=== PATIENT | female | born 2000 | race Caucasian/White ===

== ENCOUNTER 2021-03-20 03:24 | Emergency (ER) | payer MEDICAID, SELFPAY ==
[2021-03-20 03:27] VITALS: BP 111/71; PULSE 84; RESP 14; TEMP 37.2; O2SAT 98; BMI 23.8
[2021-03-20 04:02] LABS: Urine Pregnancy, HCG Qual. Negative (Negative)
[2021-03-20 04:12] LABS: Appearance,Urine CLEAR (Clear); Bilirubin,Urine Negative (Negative); Blood, Urine 1+ (Negative); Color,Urine YELLOW (Yellow); Glucose,Urine (UA) Negative (Negative); Ketones,Urine Negative (Negative); Leukocyte Esterase,Urine Negative (Negative); Microscopic, Urine URINE MICROSCOPIC (MICROSCOPIC); Nitrate,Urine Negative (Negative); PH,Urine 5.5 (5.0-8.5); Protein,Urine Negative (Negative); Specific Gravity, Urine 1.025 (1.005-1.030); Urobilinogen,Urine 0.2 EU/dl (0.2)
[2021-03-20 04:12] LABS: Coronavirus 19, PCR Not Detected (NotDetected); Influenza A, PCR Not Detected (NotDetected); Influenza B, PCR Not Detected (NotDetected)
[2021-03-20 04:13] VITALS: BP 97/67; PULSE 65; O2SAT 100
[2021-03-20 04:14] LABS: Basophils # 0.2 K/mm3 (0-0.2); Eosinophils # 0.1 K/mm3 (0.0-0.4); Hematocrit 47.3 % (37.0-47.0); Hemoglobin 15.3 g/dL (12.2-16.2); Lymphocytes # 3.2 K/mm3 (0.7-4.5); Lymphocytes % 35.4 % (10-50); Mean Corpuscular HGB Conc 32.2 g/dL (31.8-35.4); Mean Corpuscular Hemoglobin 29.6 pg (27.0-31.2); Mean Corpuscular Volume 91.9 fl (81-99); Mean Platelet Volume 7.1 fl (7.4-10.4); Monocytes # 0.5 K/mm3 (0.1-1.0); Monocytes % 5.3 % (1.7-9.3); Neutrophils # 5.1 K/mm3 (1.8-7.8); Neutrophils % 56.3 % (37.0-80.0); Platelet Count 418 K/mm3 (142-424); Red Blood Count 5.15 M/mm3 (4.20-5.40); White Blood Count 9.1 K/mm3 (4.5-13.0)
[2021-03-20 04:23] LABS: Alanine Aminotransferase 13 U/L (12-78); Albumin Level 4.7 g/dl (3.5-5.0); Albumin/Globulin Ratio 1.7 (1.1-1.8); Alkaline Phosphatase 50 U/L (38-126); Anion Gap 11.8 mEq/L (5-15); Aspartate Amino Transferase 24 U/L (14-36); Bilirubin,Total 0.3 mg/dl (0.2-1.3); Blood Urea Nitrogen 9 mg/dl (7-17); Calcium 9.4 mg/dl (8.4-10.2); Carbon Dioxide 28 mmol/L (22.0-30.0); Chloride 103 mmol/L (98-107); Creatinine Clearance Estimated 119 mL/min (50-200); Estimated Glomerular Filt Rate 107 ml/min (>60); GFR (African American) 129 ML/MIN (>60); Globulin 2.7 g/dL (1.3-3.2); Glucose 95 mg/dl (74-100); Potassium 3.8 mmoL/L (3.5-5.1); Sodium 139 mmol/L (136-145); Total Protein,Serum 7.4 g/dl (6.3-8.2)
[2021-03-20 04:27] LABS: Squamous Epithelial Cell,Urine Occasional #/hpf (0-5); WBC,Urine Occasional #/hpf (0-3)
[2021-03-20 04:28] LABS: C-Reactive Protein 0.8 mg/L (0-4)
[2021-03-20 04:30] VITALS: BP 95/61; PULSE 65; O2SAT 100
--- NOTE | 2021-03-20 04:36 | HMH.EDNVD ---
ED Disposition Clinical Impression: Gastroenteritis Disposition: Home, Self-Care Condition on Discharge: Good Instructions: DI for Nausea -- Adult Additional Instructions: fluids and call pcp for follow up Prescriptions: ondansetron HCL [Zofran 4mg Tab] 4 mg PO TID #21 tab Prescription Printed Referrals: Provider,Referral, [Primary Care Provider] - - Critical Care Critical Care Time: No Attestation: On 03/20/21, the high probability of a clinically significant, sudden or life threatening deterioration of the following system(s) required my full and direct attention, intervention and personal management. The time I documented below is in addition to time spent performing reported procedures but includes the following listed in this critical care notation. Medical Decision Making - Medical Records Medical records reviewed: Yes: I reviewed the patient's medical records. - Johnnie Inquiry Pt receiving controlled substance: No Vital Signs: 03/20/21 03:27 Temperature 99.0 F Temperature Source Oral Pulse Rate [Right Radial] 84 Respiratory Rate 14 Blood Pressure [Right Arm] 111/71 Blood Pressure Mean [Right Arm] 84 Blood Pressure Source [Right Arm] Automatic Cuff Blood Pressure Position [Right Arm] Sitting 02 Sat by Pulse Oximetry 98 Oxygen Delivery Method Room Air - Lab Data Lab results reviewed: Yes: I reviewed the patient's lab results. Lab Results 03/20/21 03:34: Urine Color Yellow, Urine Appearance Clear, Urine pH 5.5, Ur Specific [place] 1.025, Urine Protein Negative, Urine Glucose (UA) Negative, Urine Ketones Negative, Urine Blood 1+, Urine Nitrate Negative, Urine Bilirubin Negative, Urine Urobilinogen 0.2, Ur Leukocyte Esterase Negative, Urine RBC None, Urine WBC Occasional, Ur Squamous Epith Cells Occasional, Urine Bacteria None 03/20/21 03:34: Urine HCG, Qual Negative 03/20/21 04:05: WBC 9.1, RBC 5.15, Hgb 15.3, Hct 47.3 H, MCV 91.9, MCH 29.6, MCHC 32.2, RDW 13.0, Plt Count 418, MPV 7.1 L, Neut % (Auto) 56.3, Lymph % (Auto) 35.4, [place] % (Auto) 5.3, Eos % (Auto) 1.0, Baso % (Auto) 2.0, Neut # (Auto) 5.1, Lymph # (Auto) 3.2, [place] # (Auto) 0.5, Eos # (Auto) 0.1, Baso # (Auto) 0.2 03/20/21 04:05: Sodium 139, Potassium 3.8, Chloride 103, Carbon Dioxide 28, Anion Gap 11.8, BUN 9, Creatinine 0.70, Estimated Creat Clear 119, Estimated GFR 107, Est GFR ( Amer) 129, Glucose 95, Calcium 9.4, Total Bilirubin 0.3, AST 24, ALT 13, Alkaline Phosphatase 50, C-Reactive Protein 0.8, Total Protein 7.4, Albumin 4.7, Globulin 2.7, Albumin/Globulin Ratio 1.7 03/20/21 04:05: SARS-CoV-2 (PCR) Not detected, Influenza A Untype (PCR) Not detected, Influenza Type B (PCR) Not detected Result diagrams: 03/20/21 04:05 03/20/21 04:05 Orders (Tests/Meds): ED MEDICATIONS Generic Name Dose Route Start Last Admin Trade Name Freq PRN Reason Stop Dose Admin Sodium Chloride 1,000 mls @ 999 mls/hr 03/20/21 04:00 03/20/21 03:54 Sod Chlor 0.9% 1000ml Bag IV 03/20/21 05:00 999 mls/hr .[id number] ROBYN Administration Discontinued Medications Generic Name Dose Route Start Last Admin Trade Name Freq PRN Reason Stop Dose Admin Acetaminophen 1,000 mg 03/20/21 03:50 03/20/21 03:54 Acetaminophen 500mg Tab PO 03/20/21 03:51 1,000 mg ONCE ONE Administration Ketorolac Tromethamine 30 mg 03/20/21 03:50 03/20/21 03:54 Ketorolac 30mg/Ml Vial IV 03/20/21 03:51 30 mg ONCE ONE Administration Ondansetron HCl 4 mg 03/20/21 03:50 03/20/21 03:54 Ondansetron 4mg/2ml Vial IV 03/20/21 03:51 4 mg ONCE ONE Administration ORDERS Category Date Time Status C-Reactive Protein Stat Lab 03/20/21 04:05 Results Complete Blood Count Auto Diff Stat Lab 03/20/21 04:05 Results Comprehensive Metabolic Panel Stat Lab 03/20/21 04:05 Results Erythrocyte Sedimentation Rate Stat Lab 03/20/21 04:05 Results Procalcitonin Stat Lab 03/20/21 04:05 Results Medical Decision Narrative: has stable
[2021-03-20 04:42] LABS: Procalcitonin 0.031 ng/mL (0.0-2.0)
[2021-03-20 04:47] VITALS: BP 95/61; PULSE 67; RESP 14; TEMP 37.2; O2SAT 98
[2021-03-20 05:41] LABS: Erythrocyte Sedimentation Rate 11 mm/hr (0-20)
== END 2021-03-20 04:55 | disposition home or self-care (01) ==
PROVIDERS: Emergency Provider Emergency Medicine
DX: K52.9 Noninfective gastroenteritis and colitis, unspecified (principal); Z20.822 Contact with and (suspected) exposure to COVID-19
CPT/HCPCS: 80053; 81001; 81025; 84145; 85025; 85651; 86140; 96365; 96375; 99283; C9803; J2405; U0003; U0005

== ENCOUNTER 2021-08-12 17:36 | Emergency (ER) | payer MEDICAID, SELFPAY ==
[2021-08-12 17:38] VITALS: BP 110/72; PULSE 70; RESP 16; O2SAT 100; BMI 27.4
[2021-08-12 19:35] VITALS: BP 110/72; PULSE 82; RESP 16; TEMP 36.8; O2SAT 100; BMI 27.4
--- NOTE | 2021-08-12 19:41 | HMH.EDGENADL ---
ED Disposition Clinical Impression: Abrasion Disposition: Home, Self-Care Condition on Discharge: Good Referrals: Provider,Referral, [Primary Care Provider] - - Critical Care Critical Care Time: No Attestation: On 08/12/21, the high probability of a clinically significant, sudden or life threatening deterioration of the following system(s) required my full and direct attention, intervention and personal management. The time I documented below is in addition to time spent performing reported procedures but includes the following listed in this critical care notation. Medical Decision Making - Medical Records Medical records reviewed: Yes: I reviewed the patient's medical records. - Johnnie Inquiry Pt receiving controlled substance: No Vital Signs: 08/12/21 19:35 Temperature 98.2 F Temperature Source Oral Pulse Rate [Left Radial] 82 Respiratory Rate 16 Blood Pressure [Right Arm] 110/72 Blood Pressure Mean [Right Arm] 84 Blood Pressure Position [Right Arm] Sitting 02 Sat by Pulse Oximetry 100 Oxygen Delivery Method Room Air Orders (Tests/Meds): ED MEDICATIONS Discontinued Medications Generic Name Dose Route Start Last Admin Trade Name Freq PRN Reason Stop Dose Admin Tetanus/Reduced Diphtheria/Acell Pertussis 0.5 ml 08/12/21 19:44 08/12/21 19:46 Tet/Diphth/Pert-Adult 0.5ml Syringe IM 08/12/21 19:45 0.5 ml .ONCE ONE Administration Medical Decision Narrative: Patient is a 20-year-old healthy female presenting for chief concern of tetanus. Diagnosis includes, but is not limited to, puncture wound, abrasion versus laceration, cellulitis, soft tissue infection, other. Initial exam, patient is hemodynamically stable, nontoxic-appearing. She has oxygen saturations of 100% on room air, no focal neurological deficit. Exam reveals a superficial laceration on her right lower extremity. She states she had a last tetanus shot in 6 grade, which makes her due for an update but I believe that her injury is very low risk. She has normal VS and is well appearing on exam. Given that there is no reliable way to test/r/o tetanus, patient was counseled on return precautions but I believe she's appropriate for discharge at this time. General Adult HPI - General Stated complaint: [id number] cut on right leg, tetanus test Time Seen by Provider: 08/12/21 19:30 - History of Present Illness HPI narrative: Patient is a [id number] female presenting with chief complaint of concern for tetanus. Patient states she suffered a superficial abrasion to her right lower extremity 6 days ago which she rinsed out in the shower. She is concerned for tetanus because her father had tetanus. Patient believes she is having jaw pain and subjective shortness of breath. No fever, redness, swelling or drainage from the site. Patient has had all of her childhood vaccinations. - Related Data Home Medications Medication Instructions Recorded Confirmed Doxycycline Monohydrate 1 tab PO DAILY 08/12/21 08/12/21 [Doxycycline [place] 100mg Tab] Allergies Allergy/AdvReac Type Severity Reaction Status Date / Time amoxicillin [From Augmentin] Allergy Verified 03/20/21 03:49 banana Allergy Verified 03/20/21 03:49 cefaclor [From Ceclor] Allergy Verified 03/20/21 03:49 cephalexin [From Keflex] Allergy Verified 03/20/21 03:49 clavulanic acid Allergy Verified 03/20/21 03:49 [From Augmentin] Penicillins Allergy Verified 03/20/21 03:49 [facility] History - Hepatitis A Screen Attestation statement:: This patient has been screened for Hepatitis A risk factors. ROS Obtained: Yes Systems reviewed as appropriate & no additional complaints - Constitutional Constitutional: Denies fever(s) - Eyes Eyes: Denies change in vision - ENT Ears, Nose, Mouth, and Throat: Reports other (Jaw pain ) - Cardiovascular Cardiovascular: Denies chest pain - Respiratory Respiratory: Reports shortness of br
[2021-08-12 19:44] VITALS: BMI 27.4
[2021-08-12 20:24] VITALS: BP 110/72; PULSE 70; RESP 16; TEMP 37.1; O2SAT 92
== END 2021-08-12 20:27 | disposition home or self-care (01) ==
LOC: UTC 19:31 → ER 19:31
PROVIDERS: Emergency Provider Emergency Medicine
DX: S80.811A Abrasion, right lower leg, initial encounter (principal); R68.84 Jaw pain; R06.02 Shortness of breath; Z88.0 Allergy status to penicillin; Z88.1 Allergy status to other antibiotic agents; Z88.3 Allergy status to other anti-infective agents; Z88.8 Allergy status to other drugs, medicaments and biological substances; Z91.018 Allergy to other foods
CPT/HCPCS: 90471; 90715; 99283

== ENCOUNTER 2021-08-26 05:39 | Emergency (ER) | payer MEDICAID, SELFPAY ==
[2021-08-26 05:37] VITALS: BP 110/67; PULSE 88; RESP 17; TEMP 36.8; O2SAT 99; BMI 27.4
--- NOTE | 2021-08-26 05:54 | XR_ITS ---
PROCEDURE INFORMATION: Exam: XR Chest Exam date and time: 08/26/2021 6:14 AM Age: 20 years old Clinical indication: Wheezing and other: Syncope TECHNIQUE: Imaging protocol: XR of the chest. Views: 1 view. COMPARISON: No relevant prior studies available. FINDINGS: Lungs: Unremarkable. No consolidation. Pleural spaces: Unremarkable. No pleural effusion. No pneumothorax. Heart/Mediastinum: Unremarkable. No cardiomegaly. Bones/joints: Unremarkable. IMPRESSION: No acute findings.
--- NOTE | 2021-08-26 05:54 | ECG_ITS ---
APPROVED REPORT Exam: Resting ECG HR:78 bpm ECG Measurements Heart Rate 78 AXES TX 106 P -30 QRSd 94 QRS 74 QT 371 T 38 QTc 405 Conclusion SINUS RHYTHM WITH SHORT TX INTERVAL POSSIBLE RIGHT VENTRICULAR CONDUCTION DELAY [RSR (QR) IN V1/V2] BORDERLINE ECG UNCONFIRMED REPORT Electronically signed by : Emir Titus MD 08/27/2021 22:19:56
--- NOTE | 2021-08-26 06:00 | HMH.EDSYNC ---
ED Disposition Clinical Impression: Syncope Disposition: Home, Self-Care Condition on Discharge: Good Instructions: DI for Syncope in Adults (Fainting), DI for Syncope in Children (Fainting) Additional Instructions: Follow up with cardiology and your primary care and return to the ER for any new or worsening symptoms. Referrals: Provider,Louie, [Primary Care Provider] - Gurdeep Whitaker MD [Staff Physician] - - Critical Care Critical Care Time: No Attestation: On 08/26/21, the high probability of a clinically significant, sudden or life threatening deterioration of the following system(s) required my full and direct attention, intervention and personal management. The time I documented below is in addition to time spent performing reported procedures but includes the following listed in this critical care notation. Medical Decision Making - Medical Records Medical records reviewed: Yes: I reviewed the patient's medical records. - Johnnie Inquiry Pt receiving controlled substance: No Vital Signs: 08/26/21 05:37 08/26/21 06:31 Temperature 98.2 F Temperature Source Oral Pulse Rate 81 Pulse Rate [Right] 88 Respiratory Rate 17 16 Blood Pressure 98/64 L Blood Pressure [Right Arm] 110/67 Blood Pressure Mean [Right Arm] 81 Blood Pressure Source [Right Arm] Automatic Cuff 02 Sat by Pulse Oximetry 99 97 Oxygen Delivery Method Room Air Room Air - Lab Data Lab Results 08/26/21 05:41: Urine HCG, Qual Negative 08/26/21 06:00: Urine Color Yellow, Urine Appearance Clear, Urine pH 6.0, Ur Specific [place] 1.025, Urine Protein Negative, Urine Glucose (UA) Negative, Urine Ketones Negative, Urine Blood 2+, Urine Nitrate Negative, Urine Bilirubin Negative, Urine Urobilinogen 0.2, Ur Leukocyte Esterase Negative, Urine RBC 5-10, Urine WBC Occasional, Ur Squamous Epith Cells 5-10, Urine Bacteria 1+ 08/26/21 06:37: WBC 13.6 H, RBC 4.73, Hgb 16.3 H, Hct 40.2, MCV 85.0, MCH 34.4 H, MCHC 40.4 H*, RDW 12.1, Plt Count 398, MPV 6.5 L, Neut % (Auto) 75.0, Lymph % (Auto) 18.4, [place] % (Auto) 5.5, Eos % (Auto) 0.6, Baso % (Auto) 0.5, Neut # (Auto) 10.2 H, Lymph # (Auto) 2.5, [place] # (Auto) 0.7, Eos # (Auto) 0.1, Baso # (Auto) 0.1 08/26/21 06:37: Sodium 138, Potassium 4.1, Chloride 102, Carbon Dioxide 27, Anion Gap 13.1, BUN 15, Creatinine 0.80, Estimated Creat Clear 120, Estimated GFR 91, Est GFR ( Amer) 111, Glucose 107 H, Calcium 9.9, Magnesium 1.7 Result diagrams: 08/26/21 06:37 08/26/21 06:37 Orders (Tests/Meds): ORDERS Category Date Time Status XR chest portable Stat Exams 08/26/21 05:54 Taken ECG Request by /Makayla Stat Y 08/26/21 05:54 Ordered - ECG Data Tracing #1 I reviewed this ECG and interpreted as documented below: Sinus rhythm short ME 106 ventricular rate of 78 QRS 84 QTC 405 normal axis no acute ST segment changes Medical Decision Narrative: 20-year-old female who presents after syncopal episode after she got very short of breath trying to run with her boyfriend. She has a history of vasovagal and orthostatic syncope. Suspect that she is got very out of breath tachypneic and syncopized. She was having no palpitations or chest pain during the event. She is also having no chest pain on arrival. Vital signs are hemodynamically stable she is PERC negative for pulmonary embolism. EKG has potential delta wave in the inferior leads but not throughout. Will send her to cardiology for a holter and follow up. Syncope HPI - General Chief Complaint: Syncope Stated Complaint: Fall Time Seen by Provider: 08/26/21 06:00 Mode of Arrival: EMS Limitations: No Limitations Description of Symptoms (Recalled from ER Triage Doc. by RN): Pt reports she passed out or had a seizure while walking her dog this morning. States she has a hx of epilepsy and was on Depakote until she stopped takinga few yrs ago. Last knwon seizure was > 6 yr. States she was running with her boyfriend and dog when she
[2021-08-26 06:07] LABS: Microscopic, Urine URINE MICROSCOPIC (MICROSCOPIC)
[2021-08-26 06:08] LABS: Appearance,Urine CLEAR (Clear); Bilirubin,Urine Negative (Negative); Blood, Urine 2+ (Negative); Color,Urine YELLOW (Yellow); Glucose,Urine (UA) Negative (Negative); Ketones,Urine Negative (Negative); Leukocyte Esterase,Urine Negative (Negative); Nitrate,Urine Negative (Negative); Protein,Urine Negative (Negative); Specific Gravity, Urine 1.025 (1.005-1.030); Urobilinogen,Urine 0.2 EU/dl (0.2)
[2021-08-26 06:10] LABS: Urine Pregnancy, HCG Qual. Negative (Negative)
[2021-08-26 06:25] LABS: Bacteria,Urine 1+ /lpf
[2021-08-26 06:26] LABS: WBC,Urine Occasional #/hpf (0-3)
[2021-08-26 06:31] VITALS: BP 98/64; PULSE 81; RESP 16; O2SAT 97
[2021-08-26 06:49] LABS: Basophils # 0.1 K/mm3 (0-0.2); Basophils % 0.5 % (0.1-2.0); Eosinophils # 0.1 K/mm3 (0.0-0.4); Eosinophils % 0.6 % (0.1-12.0); Hematocrit 40.2 % (37.0-47.0); Hemoglobin 16.3 g/dL (12.2-16.2); Lymphocytes # 2.5 K/mm3 (0.7-4.5); Lymphocytes % 18.4 % (10-50); Mean Corpuscular Hemoglobin 34.4 pg (27.0-31.2); Mean Platelet Volume 6.5 fl (7.4-10.4); Monocytes # 0.7 K/mm3 (0.1-1.0); Monocytes % 5.5 % (1.7-9.3); Neutrophils # 10.2 K/mm3 (1.8-7.8); Platelet Count 398 K/mm3 (142-424); Red Blood Count 4.73 M/mm3 (4.20-5.40); Red Cell Distribution Width 12.1 % (11.5-17.5); White Blood Count 13.6 K/mm3 (4.5-13.0)
[2021-08-26 06:53] LABS: Mean Corpuscular HGB Conc 40.4 g/dL (31.8-35.4)
[2021-08-26 06:56] LABS: Chloride 102 mmol/L (98-107); Potassium 4.1 mmoL/L (3.5-5.1); Sodium 138 mmol/L (136-145)
[2021-08-26 06:59] LABS: Anion Gap 13.1 mEq/L (5-15); Blood Urea Nitrogen 15 mg/dl (7-17); Calcium 9.9 mg/dl (8.4-10.2); Carbon Dioxide 27 mmol/L (22.0-30.0); Creatinine Clearance Estimated 120 mL/min (50-200); Estimated Glomerular Filt Rate 91 ml/min (>60); GFR (African American) 111 ML/MIN (>60); Glucose 107 mg/dl (74-100); Magnesium 1.7 mg/dl (1.6-2.3)
[2021-08-26 07:24] VITALS: BP 102/66; PULSE 82; RESP 16; O2SAT 98
[2021-08-26 07:30] VITALS: BP 102/66; PULSE 78; RESP 14; TEMP 36.8; O2SAT 98
== END 2021-08-26 07:30 | disposition home or self-care (01) ==
PROVIDERS: Emergency Provider Student in an Organized Health Care Education/Training Program
DX: R55 Syncope and collapse (principal); R06.02 Shortness of breath; Z86.69 Personal history of other diseases of the nervous system and sense organs; Z88.0 Allergy status to penicillin; Z88.1 Allergy status to other antibiotic agents; Z88.8 Allergy status to other drugs, medicaments and biological substances
CPT/HCPCS: 71045; 80048; 81001; 81025; 83735; 85025; 93005; 99283